=== PATIENT | female | born 1965 | race African-American/Black ===

== ENCOUNTER 2020-04-18 09:05 | Emergency (ER) | payer MEDICAID, OTHER ==
[~2020-04-18] VITALS: Ht 162.6 cm; Wt 77.0 kg
[2020-04-18 09:06] VITALS: BP 121/73
== END 2020-04-18 10:48 | disposition home or self-care (01) ==
LOC: ER 09:05
DX: M54.42 Lumbago with sciatica, left side (principal); Z88.2 Allergy status to sulfonamides
CPT/HCPCS: 99283

== ENCOUNTER 2020-05-26 13:19 | Emergency (ER) | payer MEDICAID ==
[~2020-05-26] VITALS: Ht 162.6 cm; Wt 78.9 kg
[2020-05-26] MEDS ORDERED: ACETAMINOPHEN 325MG TABLET PO ONE (14:00)
[2020-05-26] MEDS ORDERED: HYDROCODONE/ACETAMINOPHEN 5/325MG TABLET PO ONE (14:15)
[2020-05-26 15:21] VITALS: BP 132/76
== END 2020-05-26 15:21 | disposition home or self-care (01) ==
LOC: ER 13:53
DX: M79.10 Myalgia, unspecified site (principal); M54.5 Low back pain; G89.29 Other chronic pain; R05 Cough; M54.30 Sciatica, unspecified side; Z03.818 Encounter for observation for suspected exposure to other biological agents ruled out; Z88.2 Allergy status to sulfonamides
CPT/HCPCS: 71045; 87635; 99284; C9803

== ENCOUNTER 2020-05-26 16:25 | Emergency (ER) | payer MEDICAID ==
[~2020-05-26] VITALS: Ht 162.6 cm; Wt 77.5 kg
[2020-05-26 16:27] VITALS: BP 149/76
[2020-05-26] MEDS ORDERED: FLUCONAZOLE 100MG TABLET PO ONE (17:00)
[2020-05-26] MEDS ORDERED: FLUCONAZOLE 150MG TABLET PO NR (17:15)
== END 2020-05-26 17:30 | disposition home or self-care (01) ==
LOC: ER 16:25
DX: B37.3 Candidiasis of vulva and vagina (principal); M54.30 Sciatica, unspecified side; Z88.2 Allergy status to sulfonamides
CPT/HCPCS: 99283

== ENCOUNTER 2021-06-13 08:11 | Emergency (ER) | payer MEDICAID, OTHER ==
[~2021-06-13] VITALS: Ht 162.6 cm; Wt 79.0 kg
[2021-06-13] MEDS ORDERED: KETOROLAC 60MG/2ML VIAL IM ONE (08:45)
[2021-06-13] MEDS ORDERED: HYDROCODONE/ACETAMINOPHEN 5/325MG TABLET PO ONE (08:45)
[2021-06-13] MEDS ORDERED: IBUP-2028 MT (09:40)
[2021-06-13] MEDS ORDERED: HYDR-4001 MT (09:40)
[2021-06-13 10:35] VITALS: BP 140/89
== END 2021-06-13 10:37 | disposition home or self-care (01) ==
LOC: ER 08:11
DX: M54.30 Sciatica, unspecified side (principal); M17.12 Unilateral primary osteoarthritis, left knee; Z88.2 Allergy status to sulfonamides
CPT/HCPCS: 73562; 96372; 99283; J1885

== ENCOUNTER 2021-08-20 16:55 | Emergency (ER) | payer MEDICAID ==
[~2021-08-20] VITALS: Ht 167.6 cm; Wt 73.0 kg
[~2021-08-20 16:55] MED LIST: HYDR-4001 MT; IBUP-2028 MT
[2021-08-20] MEDS ORDERED: KETOROLAC 30MG/ML VIAL IV STA (18:13)
[2021-08-20] MEDS ORDERED: ACETAMINOPHEN 325MG TABLET PO ONE (18:15)
[2021-08-20] MEDS ORDERED: SODIUM CHLORIDE 0.9% 1,000 ML IV ONE (18:15)
[2021-08-20] MEDS ORDERED: BUDESONIDE 0.25MG/2ML NEB HHN NR (18:45)
[2021-08-20 18:51] LABS: EOSINOPHILS % 0.3 % (0.0-5.0); HEMATOCRIT. 42.6 % (36.0-48.0); HEMOGLOBIN. 13.7 g/dL (12.0-16.0); LYMPHOCYTES % 31.6 % (20.0-50.0); MEAN CORPUSCULAR HEMOGLOBIN 23.2 pg (28.0-32.0); MEAN CORPUSCULAR VOLUME 72.2 fL (81.0-99.0); MEAN PLATELET VOLUME 8.8 fl (7.4-10.4); MONOCYTES % 8.1 % (2.0-8.0); PLATELET 199 x1000/uL (130-400); RED CELL DISTRIBUTION WIDTH 14.8 % (11.6-14.6)
[2021-08-20 18:55] LABS: CHLORIDE 110 mEq/L (98-107)
[2021-08-20] MEDS ORDERED: BUDE90AE INH (20:01)
[2021-08-20] MEDS ORDERED: KETO10TA2 MT (20:01)
[2021-08-20] MEDS ORDERED: BUDESONIDE 0.5MG/2ML NEB HHN ONE (20:45)
[2021-08-20 21:15] VITALS: BP 133/86
== END 2021-08-20 21:10 | disposition home or self-care (01) ==
LOC: ER 16:55
DX: U07.1 COVID-19 (principal); R07.89 Other chest pain; I10 Essential (primary) hypertension; M54.32 Sciatica, left side; Z90.710 Acquired absence of both cervix and uterus; Z79.899 Other long term (current) drug therapy
CPT/HCPCS: 36415; 71045; 80053; 84484; 85025; 93005; 94640; 96361; 96374; 99285; J1885; J7030; Z7610; J7626